=== PATIENT | female | born 1955 | race African-American/Black ===

== ENCOUNTER 2018-05-11 14:56 | Emergency (ER) | payer MEDICAID ==
[~2018-05-11] VITALS: Ht 177.8 cm; Wt 50.0 kg
[~2018-05-11 14:56] MED LIST: ASPI-1159 PO; INSU3INS6 SUBCUT
[2018-05-11 17:15] LABS: CHLORIDE 91 mEq/L (98-107)
[2018-05-11 17:18] LABS: BASOPHILS % 0.6 % (0.0-2.0); EOSINOPHILS % 0.5 % (0.0-5.0); HEMOGLOBIN. 15.3 g/dL (12.0-16.0); LYMPHOCYTES % 27.4 % (20.0-50.0); MEAN CORPUSCULAR HEMOGLOBIN 27.9 pg (28.0-32.0); MEAN CORPUSCULAR VOLUME 85.2 fL (81.0-99.0); MEAN PLATELET VOLUME 9.5 fl (7.4-10.4); MONOCYTES % 3.1 % (2.0-8.0); NEUTROPHILS % 68.4 % (40.0-76.0); PLATELET 233 x1000/uL (130-400); RED BLOOD CELL COUNT 5.51 mill/uL (4.2-5.4); RED CELL DISTRIBUTION WIDTH 13.2 % (11.6-14.6)
[2018-05-11 17:28] LABS: BETA HYDROXYBUTYRATE 1.3 mMol/L (0.0-0.3)
[2018-05-11 18:00] LABS: CLARITY URINE CLEAR (CLEAR); COLOR URINE YELLOW (YELLOW); KETONES URINE 2+ (NEGATIVE); LEUKOCYTE ESTERASE URINE NEGATIVE (NEGATIVE); NITRITE URINE NEGATIVE (NEGATIVE); OCCULT BLOOD URINE NEGATIVE (NEGATIVE); PROTEIN URINE NEGATIVE (NEGATIVE); SPECIFIC GRAVITY URINE 1.034 (1.005-1.030); UROBILINOGEN URINE 0.2 E.U./dL (0.2-1.0)
[2018-05-11] MEDS ORDERED: INSULIN REGULAR (HUMULIN R) 300UNITS/3ML SUBCUT NR (19:00)
[2018-05-11 19:06] VITALS: BP 102/71
== END 2018-05-11 19:14 | disposition home or self-care (01) ==
LOC: ER 14:56
DX: E11.65 Type 2 diabetes mellitus with hyperglycemia (principal); J44.9 Chronic obstructive pulmonary disease, unspecified; Z79.4 Long term (current) use of insulin; Z79.82 Long term (current) use of aspirin
CPT/HCPCS: 36415; 71045; 80053; 81003; 82010; 82962; 84484; 85025; 93005; 96372; 99285; J1815; Z7610

== ENCOUNTER 2018-09-22 15:55 | Emergency (ER) | payer MEDICAID ==
[~2018-09-22] VITALS: Ht 177.8 cm; Wt 121.0 kg
[2018-09-22 16:17] VITALS: BP 134/82
[2018-09-22] MEDS ORDERED: atrovent (16:17)
== END 2018-09-22 20:34 | disposition left against medical advice (07) ==
LOC: ER 15:55
DX: R05 Cough (principal); R09.81 Nasal congestion; Z53.21 Procedure and treatment not carried out due to patient leaving prior to being seen by health care provider

== ENCOUNTER 2018-11-10 20:01 | Emergency (ER) | payer MEDICAID ==
[~2018-11-10] VITALS: Ht 177.8 cm; Wt 55.5 kg
[~2018-11-10 20:01] MED LIST changes: +atrovent
[2018-11-10 21:19] VITALS: BP 108/75
== END 2018-11-10 22:15 | disposition left against medical advice (07) ==
LOC: ER 20:01
DX: R05 Cough (principal); R06.02 Shortness of breath; Z53.21 Procedure and treatment not carried out due to patient leaving prior to being seen by health care provider
CPT/HCPCS: 82962; Z7610